=== PATIENT | female | born 1945 | race Two or more races ===

== ENCOUNTER 2024-08-28 20:26 | Inpatient (IN) | payer MEDICARE, MEDICAID ==
[~2024-08-28] VITALS: Ht 154.9 cm; Wt 51.8 kg
[2024-08-28 20:50] LABS: Basophils # (auto) 0 10 ^3/uL (0-0.2); Basophils % (auto) 0.5 % (0.0-2.0); Eosinophils # (auto) 0.1 10 ^3/uL (0-0.8); Eosinophils % (auto) 2.2 % (0.0-7.0); Hematocrit 38.1 % (36.0-46.0); Hemoglobin 12.7 g/dL (12.2-16.2); Lymphocytes # (auto) 2.8 10 ^3/uL (0.4-5.4); Lymphocytes % (auto) 45.4 % (10.0-50.0); Mean Corpuscular Hemoglobin 30.9 pg (28.0-32.0); Mean Corpuscular Hgb Conc. 33.2 g/dL (32.0-36.0); Mean Corpuscular Volume 93.1 fL (80.0-100.0); Monocytes # (auto) 0.5 10 ^3/uL (0-1.3); Monocytes % (auto) 8.8 % (0.0-12.0); Neutrophils # (auto) 2.6 10 ^3/uL (1.6-8.6); Neutrophils % (auto) 43.1 % (37.0-80.0); Platelet Count (auto) 212 10^3/uL (140-450); Red Cell Distribution Width 13.3 % (11.8-14.3); White Blood Cell 6.1 10^3/uL (4.4-10.8)
[2024-08-28 20:58] LABS: Chloride 108 mmol/L (98-107); Potassium 3.2 mmol/L (3.5-5.1); Sodium 139 mmol/L (136-145)
[2024-08-28 20:59] LABS: Anion Gap 10 (5-15); Calcium 9.5 mg/dL (8.7-10.4); Carbon Dioxide 21 mmol/L (20-31)
[2024-08-28 21:04] LABS: Blood Urea Nitrogen 18 mg/dL (9-23); Glucose 132 mg/dL (74-106)
[2024-08-28 21:30] VITALS: PULSE 50; RESP 8; O2SAT 96
[2024-08-28] MEDS: POTASSIUM CHL 20 Meq TABLET PO ONE (22:23)
[2024-08-28] MEDS ORDERED: MORPHINE SULFATE INJ 2 MG/ml SYRG IV PRN (23:00)
[2024-08-28] MEDS ORDERED: ONDANSETRON HCL 4 MG/2 ML VIAL IV PRN (23:00)
[2024-08-28] MEDS ORDERED: NITROGLYCERIN 0.4 MG SL TAB SL PRN (23:00)
[2024-08-29] VITALS (7 sets, daily range): BP systolic 118–161; BP diastolic 59–91; PULSE 50–69; RESP 17–18; TEMP 97.3–98.3; O2SAT 95–100
[2024-08-29 00:18] LABS: Triglycerides 79 mg/dL (< 150)
[2024-08-29 00:19] LABS: LDL Cholesterol 59 mg/dL (< 100)
[2024-08-29 00:20] LABS: HDL Cholesterol 54 mg/dL (40-59)
[2024-08-29 00:21] LABS: Cholesterol 129 mg/dL (< 200)
[2024-08-29] MEDS: ENOXAPARIN SOD 100 MG/1 ML SYRINGE SC ONE (00:54)
[2024-08-29 04:56] LABS: Anion Gap 7 (5-15); Carbon Dioxide 26 mmol/L (20-31); Chloride 107 mmol/L (98-107); Potassium 4.5 mmol/L (3.5-5.1); Sodium 140 mmol/L (136-145)
[2024-08-29 04:57] LABS: Calcium 8.9 mg/dL (8.7-10.4)
[2024-08-29 05:02] LABS: Blood Urea Nitrogen 17 mg/dL (9-23); Glucose 93 mg/dL (74-106)
[2024-08-29] MEDS: ASPirin 81 mg TAB PO SCH (09:04)
[2024-08-29] MEDS: LISINOPRIL 5 MG TAB PO SCH (09:05)
[2024-08-29] MEDS ORDERED: ENOXAPARIN SOD 40 MG/0.4 ML SYRINGE SC SCH (10:00)
[2024-08-29 10:56] LABS: Albumin 3.6 g/dL (3.2-4.8); Bilirubin, Direct 0.2 mg/dL (<0.3); Bilirubin, Total 0.5 mg/dL (0.2-1.0); Total Protein 6.9 g/dL (5.7-8.2)
[2024-08-29] MEDS: ATORVASTATIN 20 MG TAB PO ONE ×2 (12:45→16:21)
[2024-08-29] MEDS ORDERED: APIX2.5T PO (16:19)
[2024-08-29] MEDS ORDERED: LOSA-534 PO (16:19)
[2024-08-29] MEDS ORDERED: ATOR40TA52 PO (16:19)
[2024-08-29] MEDS ORDERED: METF-370 PO (16:19)
[2024-08-29] MEDS: SPIRONOLACTONE 25 MG TAB PO ONE (16:20)
[2024-08-29] MEDS: CARVEDILOL 3.125 MG TAB PO ONE (16:20)
[2024-08-29] MEDS: CARVEDILOL 3.125 MG TAB PO SCH (21:21)
[2024-08-30] VITALS (7 sets, daily range): BP systolic 120–159; BP diastolic 60–75; PULSE 50–70; RESP 16–20; TEMP 36.8; O2SAT 96–100
[2024-08-30] MEDS: ENOXAPARIN SOD 40 MG/0.4 ML SYRINGE SC SCH (09:50)
[2024-08-30] MEDS: ASPirin 81 mg TAB PO SCH (09:50)
[2024-08-30] MEDS: SPIRONOLACTONE 25 MG TAB PO SCH (09:51)
[2024-08-30] MEDS: EMPAGLIFLOZIN 10 MG TAB PO SCH (09:52)
[2024-08-30] MEDS ORDERED: EMPA1TAB PO (13:54)
[2024-08-30] MEDS ORDERED: CARV-214 PO (13:54)
[2024-08-30] MEDS ORDERED: SPIR25TA PO (13:54)
[2024-08-30] MEDS ORDERED: ATORVASTATIN 20 MG TAB PO SCH (22:00)
== END 2024-08-30 14:40 | disposition home or self-care (01) | DRG 194 ==
LOC: ER 20:26 → EDBD 20:26 → TELE 23:04 → TELE-CENTR 08-29 05:19
PROVIDERS: ADMIT Internal Medicine; ATTEND Internal Medicine
DX: I13.0 Hypertensive heart and chronic kidney disease with heart failure and stage 1 through stage 4 chronic kidney disease, or unspecified chronic kidney disease (principal); I21.A1 Myocardial infarction type 2; I27.20 Pulmonary hypertension, unspecified; I50.23 Acute on chronic systolic (congestive) heart failure; F03.90 Unspecified dementia, unspecified severity, without behavioral disturbance, psychotic disturbance, mood disturbance, and anxiety; I35.8 Other nonrheumatic aortic valve disorders; I25.10 Atherosclerotic heart disease of native coronary artery without angina pectoris; E78.5 Hyperlipidemia, unspecified; E87.6 Hypokalemia; I45.4 Nonspecific intraventricular block; N18.2 Chronic kidney disease, stage 2 (mild); E11.22 Type 2 diabetes mellitus with diabetic chronic kidney disease; I25.2 Old myocardial infarction; Z95.0 Presence of cardiac pacemaker; Z86.73 Personal history of transient ischemic attack (TIA), and cerebral infarction without residual deficits; Z79.899 Other long term (current) drug therapy
CPT/HCPCS: 36415; 71045; 80048; 80061; 80076; 83036; 83880; 84484; 85025; 85379; 93005; 93306; 99291; G0378